=== PATIENT | female | born 1980 | race Caucasian/White ===

== ENCOUNTER 2017-11-15 07:34 | Emergency (ER) | payer SELFPAY ==
[2017-11-15] MEDS ORDERED: Proparacaine 0.5% Ophth Soln 15 ML Bottle EYELF ONE (08:07)
--- NOTE | 2017-11-15 08:31 | EDM.PDOC ---
ED HPI GENERAL MEDICAL PROBLEM - General Chief Complaint: Eye Problems Stated Complaint: INFECTED LEFT EYE Time Seen by Provider: 11/15/17 08:05 Source of Information: Reports: Patient History Limitations: Reports: No Limitations - History of Present Illness INITIAL COMMENTS - FREE TEXT/NARRATIVE: 37-year-old female has irritation in her left eye since yesterday morning, she wore her contacts overnight. Now she has redness and watering but no matter. Onset: Gradual Severity: Moderate Worsens with: Reports: Other (She is very photophobic) Left Eye Pain Score (Numeric/FACES): 8 - Related Data Allergies Allergy/AdvReac Type Severity Reaction Status Date / Time No Known Allergies Allergy Verified 11/15/17 07:56 Home Meds: Home Meds Dicyclomine [Bentyl] 10 mg PO DAILY 11/15/17 [History] Gabapentin [Neurontin] 300 mg PO TID 11/15/17 [History] lamoTRIgine [Lamictal] 200 mg PO DAILY 11/15/17 [History] Past Medical History HEENT History: Reports: Allergic Rhinitis, Otitis Media Gastrointestinal History: Reports: Inflammatory Bowel Disease [employer] History: Reports: Dysfunctional Uterine Bleeding Musculoskeletal History: Reports: Fracture Psychiatric History: Reports: Anxiety, Bipolar - Past Surgical History HEENT Surgical History: Reports: Myringotomy w Tube(s) Female Surgical History: Reports: Hysterectomy Social & Family History - Tobacco Use Smoking Status *Q: Current Every Day Smoker Years of Tobacco use: 25 Packs/Tins Daily: 1 - Caffeine Use Caffeine Use: Reports: Coffee - Recreational Drug Use Recreational Drug Use: No ED ROS GENERAL - Review of Systems Review Of Systems: See Below Constitutional: Denies: Fever, Chills HEENT: Reports: Sinus Problem (Some sinus congestion over the past several days) Respiratory: Denies: Shortness of Breath, Cough GI/Abdominal: Denies: Nausea, Vomiting Skin: Denies: Rash ED EXAM GENERAL W FULL EYE - Physical Exam Exam: See Below Exam Limited By: No Limitations General Appearance: Alert, No Apparent Distress (Looks uncomfortable but not distressed) Eye Exam: Left Eye: Conjunctival Injection, Other (Small ulceration seen after fluorescein stain), Bilateral Eye: EOMI, PERRL Eyelids: Left: Erythema Conjunctiva & Sclera: Left: Injected Cornea Exam: Left: Corneal Ulcer (Small corneal ulcer seen at 12:00 just inside the edge of the iris) Respiratory/Chest: No Respiratory Distress Course - Vital Signs Last Recorded V/S: Last Vital Signs Temp 98 F 11/15/17 08:02 Pulse 75 11/15/17 08:02 Resp 14 11/15/17 08:02 BP 133/75 11/15/17 08:02 Pulse Ox 100 11/15/17 08:02 - Orders/Labs/Meds Meds: Medications Discontinued Medications Generic Name Dose Route Start Last Admin Trade Name Elan PRN Reason Stop Dose Admin Proparacaine HCl 1 ml 11/15/17 08:07 11/15/17 08:11 Proparacaine 0.5% Ophth Soln EYELF 11/15/17 08:08 2 drop ONETIME ONE Administration - Re-Assessments/Exams Free Text/Narrative Re-Assessment/Exam: 11/15/17 08:34 After proparacaine anesthesia symptoms were much improved. On fluorescein stain a small uptake was seen at 12:00 on the iris, and slit lamp exam revealed what appeared to be a small ulceration in the cornea. It did not appear to be a foreign body. Patient was placed on Maxitrol eyedrops 5 times a day and encouraged to recheck with optometry in the next 48-72 hours. She will not wear contacts until okayed by an sports complex attendant. Departure - Departure Time of Disposition: 08:40 Disposition: Home, Self-Care 01 Condition: Good Clinical Impression: Corneal ulcer Qualifiers: Laterality: left Qualified Code(s): H16.002 - Unspecified corneal ulcer, left eye - Discharge Information Instructions: Corneal Ulcer Referrals: PCP,None [Primary Care Provider] - Forms: ED Department Discharge Care Plan Goals: Use Maxitrol drops every 3-4 hours for the next 48 hours and then space out usage of drops over the next 5-7 days until better. I would strongly encourage you to recheck with optometry in the next 48-72 hours.
== END 2017-11-15 08:45 | disposition home or self-care (01) ==
LOC: JP.ED 07:34
DX: H16.002 Unspecified corneal ulcer, left eye (principal); F17.210 Nicotine dependence, cigarettes, uncomplicated; Z79.899 Other long term (current) drug therapy
CPT/HCPCS: 99283; A9270